=== PATIENT | female | born 1990 | race Hispanic/Latino ===

== ENCOUNTER 2024-11-22 14:59 | Emergency (ER) | payer OTHER ==
--- OUTSIDE RECORDS SUMMARY | 2024-11-22 15:02 | XMS REPORT | Continuity of Care Document ---
Author Name Unknown Address [address] [facility] [address] [place] [address] [facility] Address [address] [facility] [place] [address] Care Team Providers Care Concrete Tester Name Role Phone Liset Hurst Attending Clinician Unavailable Physician, No Primary or Family Admitting Clinic jhon Unavailable Payers Payer Name Policy Type Policy Number Effective Date Expirati on Date Source Allergies, Adverse Reactions, Alerts Allergy Name Allergy Type Status Severity Reaction(s) Onset Date Inactive Date Treating Clinician Comments Source No Known Allergie s DA Active U 07-23 00:00: 00 [facility] Encounters Start Date/Time End Date/Time Encounter Type Admission Type Attending Clinicians Care Facility Care Department Encounter ID Source 2023-07-24 08:14:00 2023-07-24 08:56:00 Emergency EM Liset Hurst [facility] [id number] 15 [facility] Notes Date/Time Note Provider Source 2023-07-24 08:49:00 [facility] EMERGENCY PROVIDER REPORT REPORT#:[id number] REPORT STATUS: Signed DATE:07/24/23 TIME: 848 PATIENT: RHONA MULTANI UNIT #: [id number] ROOM/BED: AGE: 32 SEX: F PCP PHYS: No Primary or Family Physician SERVICE AUTHOR: Magan Kaur LOCATION: [facility] * ALL edits or amendments must be made on the electronic/computer document * Magan Kaur N 07/24/23 0849: HPI-Recheck W/B/S Peds Free Text HPI Notes Free Text HPI Notes This is a 32-year-old female with history of diabetes and hypertension presents to emergency room for wound check. Reports obtained a laceration repair 8 days ago at the last, on her right side of her neck left side of her knee, however yesterday she noticed tenderness on her left medial knee laceration with redness. Patient denies any current SOB, abdominal pain, chest pain, dizziness, lightheadedness, nausea/vomiting, diarrhea, fever and chills. 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 Free Text ROS Notes Free Text ROS Notes wound check Past Medical History - Peds Stated Complaint STITCHES INFECTED STITCHES Allergies Coded Allergies: No Known Allergies (07/24/23) Calculated suicide risk level: No risk Additional Medical History Diabetes hypertension Additional Surgical History Hysterectomy Alcohol Use Occasional Drug Use Denies drug use Smoking status for patients 13 years old or older: Never Smoker Physical Exam Vital Signs Vital Signs First Documented: Result Date Time Pulse Ox 99 / 0815 B/P 119/82 / 0815 B/P Mean 94 / 0815 O2 Delivery Room air 07/23 0815 Temp 36.8 07/23 0815 Pulse 77 / 0815 Resp 18 07/24 0715 Last Documented: Result Date Time Pulse Ox 99 / 0815 B/P 119/82 / 0815 B/P Mean 94 / 0815 O2 Delivery Room air 07/23 0815 Temp 36.8 / 0815 Pulse 77 / 0815 Resp 18 / 0815 Review of Vital Signs Reviewed Basic Physical Exam Basic PE GEN: Well appearing/NAD, HEAD: Atraumatic/NC, EYES: PERRL, conj clear, ENT: Membranes moist, NECK: Supple, RESP: No resp distress, CV: Reg rate rhythm, ABD: Soft/non-tender, EXT: No gross abnormality, NEURO: alert orient/ age, NEURO: gross movement NL, PSYCH: ment status NL/age Focused PE General/Const General/Const Awake, Alert, No apparent distress, Well appearing, Well developed, Well hydrated, Well nourished, Cooperative, No irritability, No lethargy, Not toxic appearing, Smiling, Playful, Color NL Skin Text/Dict Notes rt lateral neck sutures about 2 cms, scabbed but tender no redness. left medial knee 6 cms with 7 sutures scabbed with mild redness, partial part and tender to touch Interpretation Diagnostics Point of Care Testing Pulse Oximetry Pulse Ox % 99 On: Room air Interpretation Interpreted by me, Pulse oximetry normal Time 0835 Re-Evaluation MDM Re-Evaluation/Progress Re-Evaluation/Progress Time of Re-Eval 0851 Re-Eval Status Unchanged Plan Post Re-Eval Plan discharge Tissue Perfusion Reassessment Patient tissue perfusion reassessment completed. Patient Discharge Departure Vital Signs/Condition Vital Signs First Documented: Result Date Time Pulse Ox 99 06/ 0815 B/P 119/82 06/03 0815 B/P Mean 94 06/03 0815 O2 Delivery Room air 06/ 0815 Temp 36.8 06/03 0815 Pulse 77 06/ 0815 Resp 18 06/ 0815 Last Documented: Result Date Time Pulse Ox 99 06/03 0815 B/P 119/82 06/03 0815 B/P Mean 94 06/03 0815 O2 Delivery Room air 06/03 0815 Temp 36.8 /03 0815 Pulse 77 06/03 0815 Resp 18 / 0815 All vital signs available at the time of this entry have been reviewed. Condition Stable, Improved Clinical Impression Clinical Impression Primary Impression: Visit for wound check Disposition Decision Discharge )( Discharged to Home Yes )( Time 0851 )( Date 07/24/23 Discharge/Care Plan Counseled Regarding Diagnosis, Prescriptions, Need for follow-up, When to return to ED Rx Drug Database Reviewed Yes (Auto) Prescriptions Current Visit Scripts CEPHALEXIN (KEFLEX) 500 MG PO Q6H CEPHALEXIN (KEFLEX) 500 MG PO Q6H #28 CAPS IBUPROFEN (MOTRIN) 800 MG PO Q8H PRN PRN pain IBUPROFEN (MOTRIN) 800 MG PO Q8H PRN PRN pain #15 TABS BACITRACIN (BACITRACIN 500 UNITS/GM TOPICAL) 1 APPLIC TOPICAL BID BACITRACIN (BACITRACIN 500 UNITS/GM TOPICAL) 1 APPLIC TOPICAL BID #15 GM Prescriptions Reviewed Risks, Benefits, Alternative treatment Patient Instructions ED Wound Care Additional Instructions Clean the area with soap and water and apply bacitracin Take the meds as prescribed with food Please follow-up at the [facility] or [facility] for removal of the sutures in the next 4 days Departure Forms WORK/SCHOOL EXCUSE VARIABLE Quality Measures BP F/U for HTN F/u with PCP/other doc Free Text Depart Notes Free Text Depart Notes Patient's condition remained stable during emergency department evaluation. Patient was in no acute cardiorespiratory distress and no acute neurological changes noted. I discussed physical examination, diagnostic test results and treatment plan with patient including need for follow-up evaluation. I encouraged return to the nearest ED if symptoms change or worsens. Patient verbalizes understanding, states intention to ensure follow-up as advised and in agreement with the treatment plan. Liset Hurst 07/24/23 0959: Patient Discharge Departure Discharge/Care Plan Referrals Resource Referral: [facility] Address: [id number] [place] [address] Provider Referral: Ja Rosario MD Address: [address] [place] [address] Resource Referral: [facility] Address: [id number] [place] [address] Supervising Physician Note MidLv Saw Pt Alone I have reviewed the PA/MEDICAL SCIENTIFIC OFFICER's note and plan of care. I was available for consultation as needed at all times during the patient's visit in the emergency department. I agree with the clinical impression, plan and disposition. at 0913 at 0959 RPT #:[id number] END OF REPORT HCAWU
[2024-11-22] MEDS ORDERED: HYDROCODONE/APAP 5/325 MG TAB ONE (15:22)
--- NOTE | 2024-11-22 15:22 | EDPHYS ---
Physician Documentation [facility] Name: Rayne Midd[facility] Age: 34 yrs Sex: Female : 1990 Arrival Date: 11/22/2024 Time: 14:59 Bed 18 Private MD: ED Physician Dano Wasserman HPI: 11/22 15:25 This 34 yrs old Female presents to ER via Ambulatory with complaints of Ear dr5 Pain, Toothache. 15:25 The complaints affect the lower left third molar. Onset: The symptoms/episode dr5 began/occurred 1 week(s) ago. 9 patient is a 34-year-old female with no past med history coming in with left bottom tooth pain after molar was removed a week ago. Patient reports that she was not given pain medication as she left and pain is not improved with medications at home. Patient reports headache and left ear pain as well as mouth pain. Patient denies fever. Patient reports painful to chew.. 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 - Infectious Disease History:: Denies. - Social history:: Smoking status: Patient denies any tobacco usage or history of. ROS: 15:25 Constitutional: as per hpi dr5 Exam: 15:25 Constitutional: This is a well developed, well nourished patient who is awake, alert, dr5 and in no acute distress. Head/Face: Normocephalic, atraumatic. Eyes: Pupils equal round and reactive to light, extra-ocular motions intact. Lids and lashes normal. Conjunctiva and sclera are non-icteric and not injected. Cornea within normal limits. Periorbital areas with no swelling, redness, or edema. Neck: Trachea midline, no thyromegaly or masses palpated, and no cervical lymphadenopathy. Supple, full range of motion without nuchal rigidity, or vertebral point tenderness. No Meningismus. Chest/axilla: Normal chest wall appearance and motion. Nontender with no deformity. No lesions are appreciated. Cardiovascular: Regular rate and rhythm with a normal S1 and S2. Normal PMI, no JVD. No pulse deficits. Respiratory: Lungs have equal breath sounds bilaterally, clear to auscultation. No rales, rhonchi or wheezes noted. No increased work of breathing, no retractions or nasal flaring. Back: No spinal tenderness. No costovertebral tenderness. Full range of motion. Skin: Warm, dry with normal turgor. Normal color with no rashes, no lesions, and no evidence of cellulitis. MS/ Extremity: Pulses equal, no cyanosis. Neurovascular intact. Full, normal range of motion. Neuro: Awake and alert, GCS 15, oriented to person, place, time, and situation. Cranial nerves II-XII grossly intact. Motor strength 5/5 in all extremities. Sensory grossly intact. Cerebellar exam normal. Normal gait. 15:25 ENT: Ear canal(s): are normal, TM's: are normal, no acute changes, Nose: is normal, Mouth: abscess, is not appreciated, drooling, is not appreciated, Dental exam: dental caries, that is mild, missing teeth, specifically the lower left third molar (#17), Vital Signs: 15:17 BP 128 / 80; Pulse 66; Resp 16; Temp 98.5; Pulse Ox 100% on R/A; Weight 70.31 kg; Pain dd2 8/10; 15:32 BP 128 / 80; Pulse 68; Resp 18; Temp 98.3; Pulse Ox 100% ; kj2 15:17 Pain Scale: Adult dd2 MDM: 15:08 Medical Screening Exam initiated dr5 15:25 Differential diagnosis: otitis media, otitis externa, Dental caries, dental abscess. dr5 Data reviewed: vital signs, nurses notes. Consideration of Admission/Observation Escalation of care including admission/observation considered. Escalation considered patient found to have left facial swelling. I considered the following discharge prescriptions or medication management in the emergency department I discussed and recommended Over The Counter medications, Medications were administered in the Emergency Department. See MAR. Test considered but Not performed: X-ray: X-ray considered but not completed due to patient's pain is due to missing tooth. No swelling or redness noted.. Historians other than the Patient: Spouse/Significant Other: Spouse.. Care significantly affected by the following Social Determinants of Health: Poor access to healthcare and/or lack of insurance, Poor access to transportation, Problems related to employment. Counseling: I had a detailed discussion with the patient and/or guardian regarding the historical points, exam findings, and any diagnostic results supporting the discharge/admit diagnosis, the presence of at least one elevated blood pressure reading (>120/80) during this emergency department visit, the need for outpatient follow up, for definitive care, a dentist, to return to the emergency department if symptoms worsen or persist or if there are any questions or concerns that arise at home. Special discussion: I discussed with the patient/guardian in detail that at this point there is no indication for admission to the hospital. It is understood, however, that if the symptoms persist or worsen the patient needs to return immediately for re-evaluation. Based on the history and exam findings, there is no indication for further emergent testing or inpatient evaluation. I discussed with the patient/guardian the need to see a dentist for further evaluation of the symptoms. ED course: Junior Systems Analyst Used during triage, assessment, and discharge (170802). Will have patient follow-up with dentist. Will prescribe medication and prophylactic antibiotics. All questions answered. Strict ER precautions given.. Administered Medications: 15:24 Drug: HYDROcodone-acetaminophen PO 5 mg-325 mg 2 tabs PO once Route: PO; kj2 15:29 Follow up: Response: No adverse reaction; Medication administered at discharge. kj2 Disposition Summary: 11/22/24 15:22 Discharge Ordered Notes: Location: Home dr5 Condition: Stable dr5 Diagnosis - Dental caries, unspecified dr5 Followup: dr5 - With: Emergency Department - When: As needed - Reason: Worsening of condition Followup: dr5 - With: Private Physician - When: 1 - 2 days - Reason: Recheck today's complaints, Continuance of care, Re-evaluation by your physician Discharge Instructions: - Discharge Summary Sheet dr5 - Dental Pain dr5 Forms: - Work release form dr5 - Medication Reconciliation Form dr5 - Antibiotic Education dr5 - Prescription Opioid Use dr5 - Patient Portal Instructions dr5 - Leadership Thank You Letter dr5 Prescriptions: - Augmentin 875-125 mg Oral Tablet - take 1 tablet ORAL route every 12 hours for 10 days; 20 tablet; Refills: 0, dr5 Product Selection Permitted - Zofran 4 mg Oral Tablet - take 1 tablet ORAL route every 12 hours As needed; 20 tablet; Refills: 0, dr5 Product Selection Permitted - Tramadol 50 mg Oral Tablet - take 1 tablet ORAL route every 8 hours as needed; 12 tablet; Refills: 0, dr5 Product Selection Permitted Signatures: Kimberly Waldrop, RN RN kj2 MARYSE NICHOLAS RN RN dd2 Tom Worley, RAHAT ARMSTRONG-5
--- NOTE | 2024-11-22 15:22 | ER ---
Nurse's Notes [facility] Name: Rayne Middleton Age: 34 yrs Sex: Female : 1990 Arrival Date: 11/22/2024 Time: 14:59 Bed 18 Private MD: Diagnosis: Dental caries, unspecified Presentation: 11/22 15:17 Chief complaint: Patient states: BACK LEFT MOLAR REMOVED 1 WEEK AGO AND HAS HAD A dd2 HEADACHE, LT EAR PAIN AND LT MOUTH AD JAW PAIN SINCE. REPORTS NAUSEA, NO VOMITING OR FEVER. Coronavirus screen: At this time, the client does not indicate any symptoms associated with coronavirus-19. Ebola Screen: No symptoms or risks identified at this time. Initial Sepsis Screen: Does the patient meet any 2 criteria? No. Patient's initial sepsis screen is negative. Does the patient have a suspected source of infection? No. Patient's initial sepsis screen is negative. Risk Assessment: Do you want to hurt yourself or someone else? Patient reports no desire to harm self or others. Onset of symptoms was November 15, 2024. 15:17 Method Of Arrival: Ambulatory dd2 15:17 Acuity: BLAYNE 4 dd2 Triage Assessment: 15:19 General: Appears in no apparent distress. uncomfortable, well groomed, well nourished, dd2 Behavior is calm, cooperative, appropriate for age. Pain: Complains of pain in LT LAW, LT EAR, HEAD Pain currently is 8 out of 10 on a pain scale. EENT: Absence of teeth noted - lower left third molar (#17) Reports pain in left ear, lower left third molar and left jaw. 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 - Infectious Disease History:: Denies. - Social history:: Smoking status: Patient denies any tobacco usage or history of. Screenin:28 [facility] ED Fall Risk Assessment (Adult) History of falling in the last 3 months, kj2 including since admission No falls in past 3 months (0 pts) Confusion or Disorientation No (0 pts) Intoxicated or Sedated No (0 pts) Impaired Gait No (0 pts) Mobility Assist Device Used No (0 pt) Altered Elimination No (0 pt) Score/Fall Risk Level 0 - 2 = Low Risk Maintained a safe environment, Hourly rounding (assess needs \T\ fall precautionary measures) done. Abuse screen: Denies threats or abuse. Denies injuries from another. Nutritional screening: No deficits noted. Tuberculosis screening: No symptoms or risk factors identified. Assessment: 15:25 General: Appears in no apparent distress. Behavior is calm, cooperative. Pain: kj2 Complains of pain in lower left third molar (#17) and left jaw and left ear. Neuro: Level of Consciousness is awake, alert, obeys commands, Oriented to person, place, time, situation. Cardiovascular: Patient's skin is warm and dry. Respiratory: Airway is patent Respiratory effort is unlabored. GI: No signs and/or symptoms were reported involving the gastrointestinal system. : No signs and/or symptoms were reported regarding the genitourinary system. Vital Signs: 15:17 BP 128 / 80; Pulse 66; Resp 16; Temp 98.5; Pulse Ox 100% on R/A; Weight 70.31 kg; Pain dd2 8/10; 15:32 BP 128 / 80; Pulse 68; Resp 18; Temp 98.3; Pulse Ox 100% ; kj2 15:17 Pain Scale: Adult dd2 ED Course: 15:06 Patient arrived in ED. cj3 15:08 Tom Wor[facility]NP-C [facility]5 15:08 Dano Wasserman MD is Attending Physician. dr5 15:19 Triage completed. dd2 15:19 Arm band placed on right wrist. dd2 15:22 Kimberly Waldrop, SHMUEL is Primary Nurse. kj2 15:28 Patient has correct armband on for positive identification. Bed in low position. Call kj2 light in reach. Adult w/ patient. Provided Education on: DISCHARGE INSTRUCTIONS. 15:29 No provider procedures requiring assistance completed. Patient did not have IV access kj2 during this emergency room visit. Administered Medications: 15:24 Drug: HYDROcodone-acetaminophen PO 5 mg-325 mg 2 tabs PO once Route: PO; kj2 15:29 Follow up: Response: No adverse reaction; Medication administered at discharge. kj2 Medication: 15:29 VIS not applicable for this client. kj2 Outcome: 15:22 Discharge ordered by MD. crockett 15:29 Discharged to home ambulatory, with family, kj2 15:29 Condition: stable 15:29 Discharge instructions given to patient, family, Instructed on discharge instructions, Demonstrated understanding of instructions, 15:39 Patient left the ED. kj2 Signatures: Kimberly Waldrop RN RN kj2 MARYSE NICHOLAS RN RN dd2 Tom Worley, CAP AND STUD MACHINE OPERATOR-C CAP AND STUD MACHINE OPERATOR-Cdr5 Reema Mejia 3
[2024-11-22 15:44] VITALS: BP 128/80; O2SAT 100
[2024-11-22 15:46] VITALS: TEMP 98.3
== END 2024-11-22 15:39 | disposition home or self-care (01) ==
LOC: ER 14:59
DX: K02.9 Dental caries, unspecified (principal)
CPT/HCPCS: 99283